=== PATIENT | female | born 1955 | race Caucasian/White ===

== ENCOUNTER → 2017-03-24 | Outpatient (CLI) | payer MEDICARE, BC ==
[2015-12-05 06:28] VITALS: BP 161/68
[~2017-03-24] MED LIST: ACETAMINOPHEN-H1 TA1 PO; ACIDOPHILUS LA1 EACH PO; AMBIEN10 MG PO; COLACE100 M1 PO; DULCOLAX S10 MG/SUPP RC; LAMOTRIGINE100 MG PO; LORAZEPAM1 M1 PO; LORTAB 10/3251 TAB PO; ROPINIROLE HYDRO5 MG PO; VENLAFAXINE HY150 MG PO; ZANTAC300 MG PO; ZYRTEC ALLERGY10 MG PO
== END ==
LOC: LAB 16:14
DX: I10 Essential (primary) hypertension (principal); I74.2 Embolism and thrombosis of arteries of the upper extremities; R69 Illness, unspecified; I77.1 Stricture of artery; R91.1 Solitary pulmonary nodule

== ENCOUNTER → 2017-03-25 | Outpatient (CLI) | payer MEDICARE, BC ==
[2015-12-05 06:28] VITALS: BP 161/68
== END ==
LOC: RAD 09:49
DX: R91.1 Solitary pulmonary nodule (principal)
CPT/HCPCS: Q9967

== ENCOUNTER → 2018-12-15 | Outpatient (CLI) | payer MEDICARE, BC ==
[2015-12-05 06:28] VITALS: BP 161/68
[2018-12-15 15:18] LABS: PROTHROMBIN TIME 34.9 SECONDS (9.0-12.0)
== END ==
LOC: LAB 14:14
PROVIDERS: Internal Medicine
DX: I74.2 Embolism and thrombosis of arteries of the upper extremities (principal)

== ENCOUNTER → 2019-02-02 | Outpatient (CLI) | payer MEDICARE, BC ==
[2015-12-05 06:28] VITALS: BP 161/68
== END ==
LOC: LAB 15:59
DX: L02.414 Cutaneous abscess of left upper limb (principal)

== ENCOUNTER → 2019-08-03 | Outpatient (CLI) | payer MEDICARE, BC ==
[2015-12-05 06:28] VITALS: BP 161/68
[2019-08-03 17:04] LABS: BASO # 0.1 (0.02-0.10); EOS # 0.2 (0.04-0.40); EOS % 2.4 % (1.0-5.0); HEMATOCRIT 42.8 % (37.0-47.0); HEMOGLOBIN 13.6 g/dL (12.5-16.0); LYMPH# 2.6 (1.50-4.00); MEAN CELL VOLUME 88 fl (78-100); MEAN CORPUSCULAR HEMOGLOBIN 28 pg (27-31); MEAN CORPUSCULAR HGB CONC 32 g/dL (33-37); MEAN PLATELET VOLUME 10.9 fl (7.4-10.4); NEU # 5.1 (1.40-6.50); RED BLOOD COUNT 4.85 M/mm3 (4.10-5.30); RED CELL DISTRIBUTION WIDTH 14.6 % (11.5-14.5); WHITE BLOOD COUNT 8.9 K/mm3 (4.8-10.8)
[2019-08-03 17:08] LABS: PLATELET COUNT 532 K/mm3 (130-400)
[2019-08-03 17:54] LABS: ALBUMIN 4.5 g/dL (3.4-4.8); POTASSIUM 5.1 mmol/L (3.5-5.1)
[2019-08-03 17:57] LABS: TOTAL PROTEIN 7.4 g/dL (6.2-8.1)
[2019-08-03 17:59] LABS: TOTAL BILIRUBIN 0.2 mg/dL (0.2-1.2)
[2019-08-03 18:10] LABS: ERYTHROCYTE SEDIMENTATION RATE 10 mm/hr (0-30)
== END ==
LOC: LAB 16:28
PROVIDERS: Internal Medicine
DX: I74.2 Embolism and thrombosis of arteries of the upper extremities (principal); I77.1 Stricture of artery; R91.1 Solitary pulmonary nodule

== ENCOUNTER → 2020-12-19 | Outpatient (CLI) | payer MEDICARE, BC ==
[2015-12-05 06:28] VITALS: BP 161/68
[2020-12-19 15:56] LABS: BASO # 0.1 (0.02-0.10); EOS # 0.3 (0.04-0.40); EOS % 2.8 % (1.0-5.0); HEMOGLOBIN 13.9 g/dL (12.5-16.0); LYMPH# 2.5 (1.50-4.00); MEAN CELL VOLUME 89 fl (78-100); MEAN CORPUSCULAR HEMOGLOBIN 29 pg (27-31); MEAN CORPUSCULAR HGB CONC 32 g/dL (33-37); MEAN PLATELET VOLUME 10.9 fl (7.4-10.4); MONO # 0.9 (0.20-0.80); NEU # 5.3 (1.40-6.50); RED BLOOD COUNT 4.83 M/mm3 (4.10-5.30); RED CELL DISTRIBUTION WIDTH 14.8 % (11.5-14.5); WHITE BLOOD COUNT 9.1 K/mm3 (4.8-10.8)
[2020-12-19 16:06] LABS: PLATELET COUNT 514 K/mm3 (130-400); POTASSIUM 4.8 mmol/L (3.5-5.1)
[2020-12-19 16:07] LABS: ALBUMIN 4.5 g/dL (3.4-4.8)
[2020-12-19 16:08] LABS: CALCIUM 10.4 mg/dL (8.3-10.5)
[2020-12-19 16:09] LABS: TOTAL PROTEIN 7.5 g/dL (6.2-8.1)
[2020-12-19 16:11] LABS: TOTAL BILIRUBIN 0.2 mg/dL (0.2-1.2)
[2020-12-19 16:16] LABS: MAGNESIUM 2.26 mg/dL (1.60-2.60)
== END ==
LOC: LAB 15:43
PROVIDERS: Internal Medicine
DX: K90.9 Intestinal malabsorption, unspecified (principal); E78.2 Mixed hyperlipidemia; I10 Essential (primary) hypertension; R73.03 Prediabetes